=== PATIENT | male | born 1950 | race Caucasian/White ===

== ENCOUNTER 2022-07-21 07:12 | Day surgery (SDC) | payer MEDICARE ==
[2022-07-21] VITALS (10 sets, daily range): BP systolic 125–154; BP diastolic 71–86; PULSE 61–75; TEMP 97.5–98.3
[~2022-07-21] VITALS: Ht 185.4 cm; Wt 117.8 kg
--- NOTE | 2022-07-21 14:35 | NUR ---
PATIENT ADMITED INTO ROOM 329 POST OP RTK. A&O. VSS. REPORTS MILD DISCOMFORT IN RLE, PACU GAVE IV PAIN MEDS, SEE MAR. RTK DSG IS CD&I WITH ACEWRAP AND ICE PACK INPLACE. TEDS TO LLE. SCD'S TO BLE. POSITIVE PEDAL PULSES. NO C/O N/V. IV FLUIDS INFUSING INTO LEFT WRIST IV. LIQUIDS AT BEDSIDE. PATIENT SHOWN HOW TO ORDER WHEN HE IS READY TO EAT. HEAD TO TOE ASSESSMENT WNL. PACU ALSO REPORTED STRAIGHT CATHING PATIENT BEFORE COMING TO FLOOR AROUND 1400 FOR 600CC, SEE PACU CHARTING. ORIENTED TO ROOM. AT BEDSIDE. NO OTHER NEEDS AT THIS TIME. CALL LIGHT IN REACH.
[2022-07-21] MEDS ORDERED: PRINZIDE 12.5 M1 TAB PO (16:43)
[2022-07-21] MEDS ORDERED: LIPITOR20 MG PO (16:43)
[2022-07-21] MEDS ORDERED: PRIL40 PO (16:43)
[2022-07-21] MEDS ORDERED: FLOMAX 0.40.4 MG/CAP PO (16:52)
[2022-07-21] MEDS ORDERED: NORVASC 5MG5 MG/TAB PO (16:52)
[2022-07-21] MEDS ORDERED: TOPROL XL 50MG50 MG PO (16:52)
[2022-07-22 00:38] VITALS: BP 149/77; PULSE 73; TEMP 98.2
--- NOTE | 2022-07-22 02:22 | NUR ---
Patient is status post right total knee replacement. Patient is alert and oriented with clear speech. Patient respirations are even and non-labored, no complaint of chest pain, no abdomen pain, patient complaining of having a weak urine flow after surgery. Patient able to ambulate to the bathroom with the assistance of a walker and standby assist. IVFs infusing at 100ml/hr, patient has a #18 IV catheter in left wrist. Dressing dry and intact.
[2022-07-22 04:29] VITALS: BP 137/70; PULSE 72; TEMP 98
[2022-07-22 06:53] LABS: HEMOGLOBIN 12.6 g/dl (13.5-18.0)
[2022-07-22 07:00] LABS: CALCIUM 8.2 mg/dL (8.4-10.2); CREATININE, serum 1.01 mg/dL (0.72-1.25); POTASSIUM 4.2 mmol/L (3.5-4.5)
[2022-07-22 08:06] VITALS: BP 138/80; PULSE 77; TEMP 98.3
--- NOTE | 2022-07-22 10:17 | NUR ---
A&OX3; NO C/O PAIN; WORKING WITH PT/OT; OT HELPING PT SHOWER; DRESSING CHANGE DONE- NO DRAINAGE; JOSH IN PLACE
[2022-07-22] MEDS ORDERED: PERCOCET 325 MG1 TA2 PO (11:14)
[2022-07-22] MEDS ORDERED: CEPHALEXIN500 M1 PO (11:14)
[2022-07-22 12:00] VITALS: BP 132/60; PULSE 66; TEMP 98.1
--- NOTE | 2022-07-22 12:16 | NUR ---
Initial visit: Packaging Machine Operator stopped by room on rounds. Pt was resting and content with by his side. Pt has no needs right now. Packaging Machine Operator will follow up as needed.
== END 2022-07-22 15:30 | disposition home or self-care (01) ==
LOC: SURG 07:12 → SDCO 07:12 → SURG 14:35 → SDCO 07-22 15:30
PROVIDERS: Orthopaedic Surgery
DX: M17.11 Unilateral primary osteoarthritis, right knee (principal); I10 Essential (primary) hypertension; K21.9 Gastro-esophageal reflux disease without esophagitis; N40.0 Benign prostatic hyperplasia without lower urinary tract symptoms; Z86.16 Personal history of COVID-19; Z87.891 Personal history of nicotine dependence; Z79.899 Other long term (current) drug therapy
CPT/HCPCS: OP; A9284; C1713; C1776; J0690; J1100; J1170; J1885; J2270; J2405; J2704; J2795; J3010; J7030; J7120